=== PATIENT | male | born 1950 | race Caucasian/White ===

== ENCOUNTER 2017-06-22 05:41 | Day surgery (SDC) | payer MEDICARE, OTHER ==
[2017-06-22] MEDS ORDERED: LACTATED RINGERS 1,000 ML IV ONE ×2 (07:04→08:45)
[2017-06-22] MEDS ORDERED: MIDAZOLAM 2 MG/2 ML VIAL IVP ONE (07:36)
[2017-06-22] MEDS ORDERED: fentaNYL 100 MCG/2 ML VIAL IVP ONE (07:36)
[2017-06-22] MEDS ORDERED: PROPOFOL 200 MG/20 ML VIAL IVP ONE (08:15)
[2017-06-22 09:37] VITALS: BP 118/63
== END 2017-06-22 05:42 | disposition home or self-care (01) ==
LOC: SDS 05:41
PROVIDERS: ATTEND Surgery
PROC: 0DBL8ZX Excision of Transverse Colon, Via Natural or Artificial Opening Endoscopic, Diagnostic (ICD-10-PCS; principal; 2017-06-22 07:30)
DX: Z12.11 Encounter for screening for malignant neoplasm of colon (principal); Z80.0 Family history of malignant neoplasm of digestive organs; D12.3 Benign neoplasm of transverse colon; D12.5 Benign neoplasm of sigmoid colon; Z79.82 Long term (current) use of aspirin; E78.5 Hyperlipidemia, unspecified; E11.9 Type 2 diabetes mellitus without complications; Z79.84 Long term (current) use of oral hypoglycemic drugs; Z87.891 Personal history of nicotine dependence
CPT/HCPCS: 45380; J7120

== ENCOUNTER 2018-12-08 05:20 | Day surgery (SDC) | payer MEDICARE, OTHER ==
[2018-12-08] MEDS ORDERED: PROPARACAINE 0.5% OPHTH DROPS 15 ML ONE (06:26)
[2018-12-08] MEDS ORDERED: PHENYLEPHRINE 2.5% OPHTH 2 ML DROPS ONE (06:27)
[2018-12-08] MEDS ORDERED: KETOROLAC 0.45% OPHTH DROPS ONE (06:27)
[2018-12-08] MEDS ORDERED: CYCLOPENTOLATE 1% OPHTH DROPS 2 ML ONE (06:28)
[2018-12-08] MEDS ORDERED: PHENYLEPHRINE 2.5% OPHTH 2 ML DROPS LEFTEYE ONE (06:40)
[2018-12-08] MEDS ORDERED: PROPARACAINE 0.5% OPHTH DROPS 15 ML LEFTEYE ONE ×2 (06:40→07:31)
[2018-12-08] MEDS ORDERED: CYCLOPENTOLATE 1% OPHTH DROPS 2 ML LEFTEYE ONE (06:40)
[2018-12-08] MEDS ORDERED: KETOROLAC 0.45% OPHTH DROPS LEFTEYE ONE (06:40)
[2018-12-08] MEDS ORDERED: LACTATED RINGERS 500 ML IV ONE (06:47)
[2018-12-08] MEDS ORDERED: TRIAMCIN/MOXIFLOX OPHTHALMIC 0.6 ML VIAL IO ONE ×2 (07:01→07:40)
[2018-12-08] MEDS ORDERED: TIMOLOL 0.5% OPHTH DROPS ONE (07:01)
[2018-12-08] MEDS ORDERED: BRIMONIDINE 0.2% OPHTH DROPS 5 ML ONE (07:01)
[2018-12-08] MEDS ORDERED: BSS/LIDOCAINE/EPINEPHRINE 1 ML SYRINGE ONE (07:02)
[2018-12-08] MEDS ORDERED: VANCOMYCIN OPHTHALMI 8MG/0.8ML 8 MG/0.8 ML SYRINGE IO ONE ×2 (07:02→07:40)
--- NOTE | 2018-12-08 07:14 | ANESTHESIA ---
Pre-Anesthesia VS, & Labs - Diagnosis senile combined cataract - Procedure cataract extraction with lens implant, left Vital Signs: Temp Pulse Resp BP Pulse Ox 36.4 C L 76 16 153/76 H 98 12/08/18 06:30 12/08/18 06:30 12/08/18 06:30 12/08/18 06:30 12/08/18 06:30 Height 5 ft 8 in Weight (kg) 84 kg Body Mass Index 27.3 - NPO >8 hours - Lab Results Current Lab Results: Laboratory Tests 12/08/18 06:46: POC Whole Bld Glucose 155 H Home Medications and Allergies Aspirin 81 mg PO DAILY 01/16/15 Atorvastatin Calcium [Lipitor] 80 mg PO DAILY 01/16/15 Metformin HCl 1,000 mg PO BID 01/16/15 Telmisartan [Micardis] 20 mg PO DAILY 01/16/15 Allergies/Adverse Reactions: Allergies Allergy/AdvReac Type Severity Reaction Status Date / Time No Known Drug Allergies Allergy Verified 01/16/15 08:48 Anes History & Medical History - Anesthetic History Anesthesia Complications: reports: No previous complications - Medical History Cardiovascular: reports: Hypertension, High cholesterol Pulmonary: reports: None Gastrointestinal: reports: None Urinary: reports: None Musculoskeletal: reports: Osteoarthritis Endocrine/Autoimmune: reports: Type 2 diabetes Skin: reports: None Smoking Status: Never smoker - Surgical History General: Colonoscopy Exam General: Alert Dental: WNL Mouth Opening: Greater than 4 Fingerbreadths Mallampati classification: II Respiratory: Lungs clear Cardiovascular: Regular rate Plan Anesthesia Type: MAC Consent for Procedure(s) Verified and Reviewed: Yes Code Status: Attempt Resuscitation ASA classification: 2-Mild systemic disease Is this case an emergency?: No
[2018-12-08] MEDS ORDERED: MIDAZOLAM 2 MG/2 ML VIAL IVP ONE (07:30)
[2018-12-08] MEDS ORDERED: TIMOLOL 0.5% OPHTH DROPS OPTH ONE (07:33)
[2018-12-08] MEDS ORDERED: CHONDR SULF/HYALURONATE SYRINGE IO ONE (07:33)
[2018-12-08] MEDS ORDERED: EPINEPHrine 1 MG/ML AMP IVP ONE (07:33)
[2018-12-08] MEDS ORDERED: BRIMONIDINE 0.2% OPHTH DROPS 5 ML OPTH ONE (07:33)
[2018-12-08] MEDS ORDERED: BSS/LIDOCAINE/EPINEPHRINE 1 ML SYRINGE IO ONE (07:40)
[2018-12-08 08:03] VITALS: BP 128/70
--- NOTE | 2018-12-08 08:35 | OPERATIVE REPORT ---
DATE OF SERVICE: 12/08/2018 Physician: Jacques Aceves MD PREOPERATIVE DIAGNOSIS: Visually significant cataract, left eye. This was his first cataract surger y. POSTOPERATIVE DIAGNOSIS: Visually significant cataract, left eye. This was his first with surgery. DESCRIPTION OF PROCEDURE: Phacoemulsification with posterior chamber intraocular lens implant, left eye. SURGEON: Jacques Aceves MD ANESTHESIA: Monitored anesthesia care. COMPLICATIONS: None. OPERATIVE INDICATIONS: This is a 77-year-old man with progressive vision loss in the left eye due to 2+ nuclear sclerotic, 2+ cortical and 1+ posterior subcapsular cataract. Best corrected visual acui ty was 20/40, with glare to 20/500 in the left eye. Indications for surgery were overall decrease in vision, difficulty reading, seeing words on the computer screen, difficulty reading, difficulty seei ng words closed caption or game score on TV, difficulty seeing street signs, difficulty driving in lo w light or at night, difficulty driving at night because of headlights from other vehicles, difficult y with glare or bright lights in any situation, and difficulty tracking a golf ball. He was consente d at length concerning the risks and benefits of cataract surgery, after which he expressed his lobo e to proceed with surgery. OPERATIVE PROCEDURE: The patient was taken into OR #3 and placed under monitored anesthesia care. A surgical timeout was conducted confirming the correct patient, correct procedure, and correct surgic al site. He was given topical anesthesia and then prepped and draped in the usual sterile fashion. The eye was entered at the 6 and 3 o'clock positions. Intracameral Shugarcaine was injected into the anterior chamber, followed by Viscoat. A continuous-tear curvilinear capsulorrhexis was performed. The nucleus was hydrodissected and phacoemulsified. The cortex was evacuated using automated infusi on and aspiration. Provisc was injected into the capsular bag, and a 19.0 diopter intraocular lens w as inserted into the bag. Approximately 0.8 mL mixture of triamcinolone, moxifloxacin and vancomycin was injected subconjunctivally in the superior quadrant for infection and inflammation prophylaxis. I and A was used to evacuate the viscoelastic material. The eye was inflated to physiologic pressur e using balanced salt solution and found to be watertight. The patient was taken from the operating room in good condition and given postoperative instructions. TD: 12/08/2018 07:57
== END 2018-12-08 05:21 | disposition home or self-care (01) ==
LOC: SDS 05:20
PROVIDERS: ATTEND Ophthalmology
PROC: 08RK3JZ Replacement of Left Lens with Synthetic Substitute, Percutaneous Approach (ICD-10-PCS; principal; 2018-12-08 07:30)
DX: H25.812 Combined forms of age-related cataract, left eye (principal); E11.36 Type 2 diabetes mellitus with diabetic cataract; I10 Essential (primary) hypertension; Z87.891 Personal history of nicotine dependence; Z79.82 Long term (current) use of aspirin; Z79.84 Long term (current) use of oral hypoglycemic drugs; Z79.899 Other long term (current) drug therapy
CPT/HCPCS: 66984; A9270; J3490; V2632

== ENCOUNTER 2020-01-27 12:59 | Outpatient (CLI) | payer MEDICARE, OTHER | END 2020-01-27 13:00 | disposition critical access hospital (66) | LOC: EMS 12:59 | PROVIDERS: ATTEND Surgery | DX: R07.89 Other chest pain (principal); R20.0 Anesthesia of skin | CPT/HCPCS: A0425; A0429 ==

== ENCOUNTER 2020-01-27 13:20 | Emergency (ER) | payer MEDICARE, OTHER ==
--- NOTE | 2020-01-27 13:42 | ED Physician Documentation ---
PD HPI CHEST PAIN - Stated complaint Stated Complaint: CP - Chief complaint Chief Complaint: Cardiac - History obtained from History obtained from: Patient, Family, EMS - History of Present Illness Timing - onset: How many hours ago (1), Today Timing - duration: Hours (1) Timing - details: Abrupt onset Pain level max: 6 Pain level now: 0 Quality: Pressure, Aching Location: Left chest Radiation: Left upper extremity Improved by: Nothing. No: Rest, Oxygen, Nitro, ASA, Antacids, Other medication Worsened by: No: Exertion, Inspiration, Eating, Movement, Palpation, Position Associated symptoms: No: Shortness of air, Diaphoresis, Nausea, Vomiting, Feeling faint / dizzy, General Weakness, Palpitations - Additional information Additional information: 69-year-old male with no cardiac history presents to the emergency department stating that he witnessed his daughter and cardiac arrest on the ground today, developed left-sided chest pain that radiated to left arm. States that this lasted approximately 1 hour. He states he had a normal coronary angiogram approximately 5 years ago. No history of cardiac stents, bypasses. He is on a baby aspirin and does have a history of hypertension. Does not smoke, drinks alcohol once a week. Nothing makes it better or worse. He states he feels like it was a stress reaction to seeing his daughter. Currently asymptomatic. Review of Systems Ten Systems: 10 systems reviewed and negative Constitutional: denies: Fever, Chills Nose: denies: Rhinorrhea / runny nose, Congestion GI: denies: Vomiting : denies: Dysuria Skin: denies: Rash Musculoskeletal: denies: Neck pain, Back pain Neurologic: denies: Headache PD PAST MEDICAL HISTORY - Past Medical History Cardiovascular: Hypertension, High cholesterol Respiratory: None Endocrine/Autoimmune: Type 2 diabetes GI: None : None HEENT: None Psych: Claustrophobia Musculoskeletal: Osteoarthritis Derm: None - Past Surgical History Past Surgical History: No General: Colonoscopy - Present Medications Home Medications: Ambulatory Orders Medication Instructions Recorded Confirmed Aspirin 81 mg PO DAILY 01/16/15 12/07/18 Atorvastatin Calcium [Lipitor] 80 mg PO DAILY 01/16/15 12/07/18 Hydrocodone/Acetaminophen 1 - 2 each PO Q6H PRN #15 tablet 01/16/15 06/21/17 [Hydrocodon-Acetaminophen 5-325] Metformin HCl 1,000 mg PO BID 01/16/15 12/07/18 Telmisartan [Micardis] 20 mg PO DAILY 01/16/15 12/07/18 - Allergies Allergies/Adverse Reactions: Allergies Allergy/AdvReac Type Severity Reaction Status Date / Time No Known Drug Allergies Allergy Verified 01/16/15 08:48 - Social History Does the pt smoke?: No Smoking Status: Never smoker Does the pt drink ETOH?: Yes Does the pt have substance abuse?: No - Immunizations Immunizations are current?: Yes PD ED PE NORMAL - Vitals Vital signs reviewed: Yes - General General: Alert and oriented X 3, No acute distress, Well developed/nourished - HEENT HEENT: PERRL, Moist mucous membranes - Neck Neck: Supple, no meningeal sign - Cardiac Cardiac: RRR, Strong equal pulses - Respiratory Respiratory: No respiratory distress, Clear bilaterally - Abdomen Abdomen: Soft, Non tender, Non distended - Derm Derm: Warm and dry - Extremities Extremities: No calf tenderness / cord - Neuro Neuro: Alert and oriented X 3 - Psych Psych: Normal mood, Normal affect Results - Vitals Vitals: Vital Signs - 24 hr 01/27/20 01/27/20 01/27/20 13:33 15:00 16:00 Temperature 37.3 C Heart Rate 83 79 78 Respiratory 16 11 L 12 Rate Blood Pressure 140/93 H 136/97 H 122/70 O2 Saturation 99 100 100 Oxygen O2 Source Room air - EKG (time done) 1333 Rate: Rate (enter#) (80) Rhythm: NSR [place]: Normal Intervals: Normal [place] QRS: Normal Ischemia: Normal ST segments - Labs Labs: Laboratory Tests 01/27/20 01/27/20 01/27/20 14:03 14:03 14:03 WBC 8.4 RBC 4.55 L Hgb 13.6 L Hct 41.8 L MCV 91.9 MCH 29.9 MCHC 32.5 RDW 13.2 Plt Count 208 MPV 9.8 Neut # (Auto) 6.7 H Lymph # (Auto) 0.9 L [place] # (Auto) 0.6 Eos # (Auto) 0.2 Baso # (Auto) 0.0 Absolute Nucleated RBC 0.00 Nucleated RBC % 0.0 Sodium 138 Potassium 3.8 Chloride 102 Carbon Dioxide 24 Anion Gap 12.0 BUN 14 Creatinine 0.8 Estimated GFR (MDRD) 95 Glucose 124 H Calcium 8.9 Total Bilirubin 1.3 H AST 23 ALT 25 Alkaline Phosphatase 41 L Troponin I High Sens 3.2 Total Protein 7.0 Albumin 4.7 Globulin 2.3 Albumin/Globulin Ratio 2.0 Lipase 30 01/27/20 15:38 WBC RBC Hgb Hct MCV MCH MCHC RDW Plt Count MPV Neut # (Auto) Lymph # (Auto) [place] # (Auto) Eos # (Auto) Baso # (Auto) Absolute Nucleated RBC Nucleated RBC % Sodium Potassium Chloride Carbon Dioxide Anion Gap BUN Creatinine Estimated GFR (MDRD) Glucose Calcium Total Bilirubin AST ALT Alkaline Phosphatase Troponin I High Sens 2.9 Total Protein Albumin Globulin Albumin/Globulin Ratio Lipase - Rads (name of study) Chest x-ray Radiology: Prelim report reviewed, EMP read contemporaneously, See rad report (Well contoured retrocardiac opacity is present. This could represent hiatal hernia or diaphragmatic hernia. Evaluation is limited based on current exam. ) PD MEDICAL DECISION MAKING - ED course Complexity details: reviewed results, re-evaluated patient, considered differential (No ST elevation TX, no aortic dissection, no PE, no tension pneumothorax, no aortic aneurysm), d/w patient ED course: 69-year-old male with what appears to be a stress reaction causing his chest pain. No evidence of acute TX. Negative troponin x2. Normal EKG. High- sensitivity troponin was used. Asymptomatic here. Does not wish to be admitted for observation, he would like to go be with his family. Patient counseled regarding signs and symptoms for which I believe and urgent re-evaluation would be necessary. Patient with good understanding of and agreement to plan and is comfortable going home at this time This document was made in part using voice recognition software. While efforts are made to proofread this document, sound alike and grammatical errors may occur. Departure - Departure Disposition: 01 Home, Self Care Clinical Impression: Stress reaction Chest pain Qualifiers: Chest pain type: unspecified Qualified Code(s): R07.9 - Chest pain, unspecified Condition: Good Instructions: ED Chest Pain Atypical Unkn Cause Follow-Up: Shelbi Martinez MD [Primary Care Provider] - Within 3 Days Comments: Continue your current medications at home. Follow-up with your doctor early next week, on Wednesday or Wednesday. Return if you worsen. Discharge Date/Time: 01/27/20 16:15
--- NOTE | 2020-01-27 14:09 | XRAY Report ---
PROCEDURE: Chest 1 View X-Ray INDICATIONS: Chest Pain TECHNIQUE: One view of the chest was acquired. COMPARISON: None FINDINGS: Surgical changes and devices: None. Lungs and pleura: No pleural effusions or pneumothorax. Lungs are clear. Mediastinum: Well contoured retrocardiac opacity is present.. Heart size is normal. Bones and chest wall: No suspicious bony lesions. Overlying soft tissues appear unremarkable. IMPRESSION: Well contoured retrocardiac opacity is present. This could represent hiatal hernia or diaphragmatic h ernia. Evaluation is limited based on current exam. Reviewed by: Irena Rojas MD on 01/27/2020 2:07 PM PDT Approved by: Irena Rojas MD on 01/27/2020 2:07 PM PDT Station ID: [id number]
[2020-01-27 14:22] LABS: BASOPHILS % (AUTO) 0.5 %; EOSINOPHILS # (AUTO) 0.2 10^3/uL (0.0-0.7); EOSINOPHILS % (AUTO) 1.8 %; HGB - HEMOGLOBIN 13.6 g/dL (14.0-18.0); LYMPHOCYTES # (AUTO) 0.9 10^3/uL (1.5-3.5); LYMPHOCYTES % (AUTO) 10.5 %; MEAN CORPUSCULAR HEMOGLOBIN 29.9 pg (27.0-31.0); MEAN CORPUSCULAR HGB CONC 32.5 g/dL (32.0-36.0); MEAN CORPUSCULAR VOLUME 91.9 fL (80.0-94.0); MEAN PLATELET VOLUME 9.8 fL (7.4-11.4); MONOCYTES # (AUTO) 0.6 10^3/uL (0.0-1.0); MONOCYTES % (AUTO) 7.1 %; NEUTROPHILS # (AUTO) 6.7 10^3/uL (1.5-6.6); NEUTROPHILS % (AUTO) 79.7 %; PLT - PLATELET COUNT 208 10^3/uL (130-450); RED BLOOD COUNT 4.55 10^6/uL (4.70-6.10); RED CELL DISTRIBUTION WIDTH 13.2 % (12.0-15.0); WHITE BLOOD COUNT 8.4 x10^3/uL (4.8-10.8)
[2020-01-27 14:35] LABS: ALBUMIN 4.7 g/dL (3.2-5.5); BILIRUBIN,TOTAL 1.3 mg/dL (0.2-1.0); CALCIUM 8.9 mg/dL (8.5-10.3); CREATININE 0.8 mg/dL (0.6-1.2)
[2020-01-27 16:06] VITALS: BP 122/70
== END 2020-01-27 16:15 | disposition home or self-care (01) ==
LOC: ED 13:20
DX: F43.9 Reaction to severe stress, unspecified (principal); R07.9 Chest pain, unspecified; I10 Essential (primary) hypertension; E11.9 Type 2 diabetes mellitus without complications; Z79.84 Long term (current) use of oral hypoglycemic drugs
CPT/HCPCS: 36415; 71045; 80053; 83690; 84484; 85025; 93005; 99284; 99285

== ENCOUNTER 2021-11-25 14:28 | Emergency (ER) | payer MEDICARE, OTHER ==
--- NOTE | 2021-11-25 15:24 | XRAY Report ---
PROCEDURE: Chest 2 View X-Ray INDICATIONS: cough TECHNIQUE: 2 view(s) of the chest. COMPARISON: January 27, 2020 FINDINGS: SUPPORT DEVICES: None. LUNGS/PLEURA: No focal consolidation, pleural effusion or space-occupying pneumothorax. MEDIASTINUM: The cardiomediastinal silhouette is within normal limits. BONES/SOFT TISSUES: No acute abnormality. Eventration of the medial left diaphragm, unchanged. IMPRESSION: 1.No acute cardiopulmonary abnormality. Reviewed by: Milan Conley MD on 11/25/2021 3:22 PM PDT Approved by: Milan Conley MD on 11/25/2021 3:22 PM PDT Station ID: [id number]
--- NOTE | 2021-11-25 16:03 | ED Physician Documentation ---
History of Present Illness - Stated complaint Stated Complaint: DIZZY, HEADACHE, SORE THROAT, CHILLS - Chief complaint Chief Complaint: General - History obtained from History obtained from: Patient - History of Present Illness Timing: Yesterday Pain level max: 5 Pain level now: 2 - Additonal information Additional information: Patient is a 71-year-old male who started getting sick yesterday. He states he had a headache, nasal congestion, sore throat, body aches, subjective fevers and cough. Has had his COVID vaccinations. Nothing makes it better or worse. No recent travel. No abdominal pain. No nausea or vomiting. No chest pain. No dyspnea Review of Systems Constitutional: reports: Fever (Subjective), Chills Nose: reports: Rhinorrhea / runny nose, Congestion, Sinus pressure / pain Throat: reports: Sore throat Cardiac: denies: Chest pain / pressure Respiratory: reports: Cough. denies: Dyspnea, Hemoptysis, Wheezing GI: denies: Abdominal Pain, Nausea, Vomiting, Diarrhea Skin: denies: Rash Musculoskeletal: denies: Neck pain, Back pain Neurologic: denies: Headache PD PAST MEDICAL HISTORY - Past Medical History Cardiovascular: Hypertension, High cholesterol Respiratory: None Endocrine/Autoimmune: Type 2 diabetes GI: None : None HEENT: None Psych: Claustrophobia Musculoskeletal: Osteoarthritis Derm: None - Past Surgical History Past Surgical History: No General: Colonoscopy - Present Medications Home Medications: Ambulatory Orders Medication Instructions Recorded Confirmed Aspirin 81 mg PO DAILY 01/16/15 11/25/21 Atorvastatin Calcium [Lipitor] 80 mg PO DAILY 01/16/15 11/25/21 Metformin HCl 1,000 mg PO BID 01/16/15 11/25/21 Telmisartan [Micardis] 20 mg PO DAILY 01/16/15 11/25/21 Benzonatate [Tessalon] 200 mg PO TID PRN #30 cap 11/25/21 Cetirizine HCl/Pseudoephedrine 1 each PO BID PRN #30 ea 11/25/21 [Zyrtec-D Tablet] Fluticasone [Flonase] 1 sprays LOC BID PRN #1 bottle 11/25/21 - Allergies Allergies/Adverse Reactions: Allergies Allergy/AdvReac Type Severity Reaction Status Date / Time No Known Drug Allergies Allergy Verified 11/25/21 14:35 - Social History Does the pt smoke?: No Smoking Status: Never smoker Does the pt drink ETOH?: Yes Does the pt have substance abuse?: No - Immunizations Immunizations are current?: Yes PD ED PE NORMAL - Vitals Vital signs reviewed: Yes - General General: Alert and oriented X 3, No acute distress - HEENT HEENT: PERRL, Ears normal, Moist mucous membranes, Pharynx benign - Neck Neck: Supple, no meningeal sign - Cardiac Cardiac: RRR, Strong equal pulses - Respiratory Respiratory: No respiratory distress, Clear bilaterally - Abdomen Abdomen: Soft, Non tender, Non distended - Derm Derm: Warm and dry, No rash - Extremities Extremities: No edema - Neuro Neuro: Alert and oriented X 3 - Psych Psych: Normal mood, Normal affect Results - Vitals Vitals: Vital Signs - 24 hr 11/25/21 14:30 Temperature 36.3 C L Heart Rate 95 Respiratory 18 Rate Blood Pressure 126/54 L O2 Saturation 98 Oxygen O2 Source Room air - Rads (name of study) cxr Radiology: Final report received, EMP read contemporaneously, See rad report (NAD) PD MEDICAL DECISION MAKING - ED course Complexity details: reviewed results, re-evaluated patient, considered differential, d/w patient ED course: Patient with what appears to be a viral upper respiratory infection. Patient is well-appearing, nontoxic. Afebrile. No hypoxia or respiratory distress. Chest x-ray does not show any acute abnormalities. We will continue supportive care and have him follow-up with his doctor for further care. Patient will return if he worsens. COVID testing performed. Patient counseled regarding signs and symptoms for which I believe and urgent re-evaluation would be necessary. Patient with good understanding of and agreement to plan and is comfortable going home at this time This document was made in part using voice recognition software. While efforts are made to proofread this document, sound alike and grammatical errors may occur. Departure - Departure Disposition: 01 Home, Self Care Clinical Impression: Viral URI Condition: Good Instructions: ED Viral Syndrome Follow-Up: your,doctor in 1 week [Other] Prescriptions: Fluticasone [Flonase] 1 sprays LOC BID PRN #1 bottle PRN Reason: Nasal Congestion Benzonatate [Tessalon] 200 mg PO TID PRN #30 cap PRN Reason: Cough Cetirizine HCl/Pseudoephedrine [Zyrtec-D Tablet] 1 each PO BID PRN #30 ea PRN Reason: nasal congestion Comments: Your prescriptions were sent to [facility] in [place]. This likely represents a viral upper respiratory infection. A COVID test was sent. Your chest x-ray does not show any evidence of pneumonia at this time. Drink plenty of fluids and rest. Return if you worsen
[2021-11-25 16:15] VITALS: BP 135/75
== END 2021-11-25 16:15 | disposition home or self-care (01) ==
LOC: ED 14:28
DX: U07.1 COVID-19 (principal)
CPT/HCPCS: 71046; 99282; 99284; U0004

== ENCOUNTER 2023-03-15 14:47 | Emergency (ER) | payer MEDICARE, OTHER ==
[2023-03-15 15:30] VITALS: O2SAT 99
[2023-03-15 16:06] LABS: BASOPHILS % (AUTO) 0.6 %; EOSINOPHILS # (AUTO) 0.3 10^3/uL (0.0-0.7); HCT - HEMATOCRIT 42.5 % (42.0-52.0); HGB - HEMOGLOBIN 13.8 g/dL (14.0-18.0); LYMPHOCYTES # (AUTO) 1.3 10^3/uL (1.5-3.5); LYMPHOCYTES % (AUTO) 19.2 %; MEAN CORPUSCULAR HEMOGLOBIN 29.9 pg (27.0-31.0); MEAN CORPUSCULAR HGB CONC 32.5 g/dL (32.0-36.0); MEAN PLATELET VOLUME 9.2 fL (7.4-11.4); MONOCYTES # (AUTO) 0.4 10^3/uL (0.0-1.0); MONOCYTES % (AUTO) 6.2 %; NEUTROPHILS # (AUTO) 4.5 10^3/uL (1.5-6.6); NEUTROPHILS % (AUTO) 68.7 %; PLT - PLATELET COUNT 231 10^3/uL (130-450); RED BLOOD COUNT 4.62 10^6/uL (4.70-6.10); RED CELL DISTRIBUTION WIDTH 13.4 % (12.0-15.0); WHITE BLOOD COUNT 6.6 x10^3/uL (4.8-10.8)
[2023-03-15 16:19] LABS: ALBUMIN 4.4 g/dL (3.2-5.5); ALBUMIN/GLOBULIN RATIO 1.9 (1.0-2.2); BILIRUBIN,TOTAL 0.4 mg/dL (0.2-1.0); CALCIUM 9.3 mg/dL (8.5-10.3); CREATININE 0.8 mg/dL (0.6-1.3); TOTAL PROTEIN 6.7 g/dL (6.4-8.9)
--- NOTE | 2023-03-15 17:47 | ED Physician Documentation ---
History of Present Illness - Stated complaint Stated Complaint: NECK PX, DIZZINESS - Chief complaint Chief Complaint: General - History obtained from History obtained from: Patient - Additonal information Additional information: 72-year-old gentleman with history of of bad neck and diabetes was looking up in the [employer] lot about a week and a half ago and felt a popping crunch in the right side of his neck. Progressively that night developed a headache and he does not have a history of frequent headaches. Subsequently over the last several days, the son thinks about 4 days, he has developed dragging of the left foot and disequilibrium such that he has needed help walking. He declines pain medication on initial evaluation. PD PAST MEDICAL HISTORY - Past Medical History Cardiovascular: Hypertension, High cholesterol Respiratory: None Endocrine/Autoimmune: Type 2 diabetes GI: None : None HEENT: None Psych: Claustrophobia Musculoskeletal: Osteoarthritis Derm: None - Past Surgical History Past Surgical History: No General: Colonoscopy - Present Medications Home Medications: Ambulatory Orders Medication Instructions Recorded Confirmed Aspirin 81 mg PO DAILY 01/16/15 11/25/21 Atorvastatin Calcium [Lipitor] 80 mg PO DAILY 01/16/15 11/25/21 Metformin HCl 1,000 mg PO BID 01/16/15 11/25/21 Telmisartan [Micardis] 20 mg PO DAILY 01/16/15 11/25/21 Benzonatate [Tessalon] 200 mg PO TID PRN #30 cap 11/25/21 Cetirizine HCl/Pseudoephedrine 1 each PO BID PRN #30 ea 11/25/21 [Zyrtec-D Tablet] Fluticasone [Flonase] 1 sprays LOC BID PRN #1 bottle 11/25/21 - Allergies Allergies/Adverse Reactions: Allergies Allergy/AdvReac Type Severity Reaction Status Date / Time No Known Drug Allergies Allergy Verified 11/25/21 14:35 - Social History Does the pt smoke?: No Smoking Status: Never smoker Does the pt drink ETOH?: Yes Does the pt have substance abuse?: No - Immunizations Immunizations are current?: Yes PD ED PE NORMAL - Vitals Vital signs reviewed: Yes - General General: Alert and oriented X 3, No acute distress - HEENT HEENT: PERRL, EOMI - Neck Neck: Supple, no meningeal sign, No bony TTP - Cardiac Cardiac: RRR, No murmur - Respiratory Respiratory: No respiratory distress, Clear bilaterally - Abdomen Abdomen: Normal bowel sounds, Soft, Non tender - Back Back: No CVA TTP, No spinal TTP - Derm Derm: Normal color, Warm and dry - Neuro Neuro: Alert and oriented X 3, stove cleaner 2-12 intact, Other (He may have a mild issues with [id number] testing on the left, but it is fairly subtle. I do not see any cranial neuropathy. He has significant difficulty walking and has to be assisted by the son and is weak and uncoordinated in the left leg.) Eye Opening: Spontaneous Motor: Obeys Commands Verbal: Oriented GCS Score: 15 - Psych Psych: Normal mood, Normal affect Results - Vitals Vitals: Vital Signs - 24 hr 03/15/23 03/15/23 03/15/23 15:06 17:17 19:16 Temperature 36.7 C Heart Rate 97 94 91 Respiratory 20 18 18 Rate Blood Pressure 151/85 H 150/85 H 149/84 H O2 Saturation 99 99 99 Oxygen O2 Source Room air - EKG (time done) 1617 EKG releavant findings:: EKG personally interpreted by author of this note. Relevant findings are: Rate: Rate (enter#) (74) Rhythm: NSR [place]: Normal QRS: Low voltage Ischemia: Normal ST segments - Labs Labs: Laboratory Tests 03/15/23 03/15/23 03/15/23 07:23 15:15 15:57 WBC 6.6 RBC 4.62 L Hgb 13.8 L Hct 42.5 MCV 92.0 MCH 29.9 MCHC 32.5 RDW 13.4 Plt Count 231 MPV 9.2 Neut # (Auto) 4.5 Lymph # (Auto) 1.3 L [place] # (Auto) 0.4 Eos # (Auto) 0.3 Baso # (Auto) 0.0 Absolute Nucleated RBC 0.00 Nucleated RBC % 0.0 PT 10.5 INR 1.0 Sodium Potassium Chloride Carbon Dioxide Anion Gap BUN Creatinine Estimated GFR (MDRD) Glucose POC Whole Bld Glucose 226 H Calcium Total Bilirubin AST ALT Alkaline Phosphatase Total Protein Albumin Globulin Albumin/Globulin Ratio 03/15/23 15:57 WBC RBC Hgb Hct MCV MCH MCHC RDW Plt Count MPV Neut # (Auto) Lymph # (Auto) [place] # (Auto) Eos # (Auto) Baso # (Auto) Absolute Nucleated RBC Nucleated RBC % PT INR Sodium 136 Potassium 4.0 Chloride 100 L Carbon Dioxide 31 Anion Gap 5.0 L BUN 11 Creatinine 0.8 Estimated GFR (MDRD) 94 Glucose 262 H POC Whole Bld Glucose Calcium 9.3 Total Bilirubin 0.4 AST 19 ALT 18 Alkaline Phosphatase 46 Total Protein 6.7 Albumin 4.4 Globulin 2.3 Albumin/Globulin Ratio 1.9 PD Medical Decision Making - ED course ED course: 72-year-old gentleman presents with a week and a half of acute neck pain and then headache and neurologic symptoms affecting the left side. Initially I was most concerned for vertebral dissection and CT angiography was done. CT angiogram demonstrates a large right-sided subdural hematoma with midline shift and early subfalcine herniation. He is awake alert and talking, he is dragging his raff left leg. There is concern also on the CTA for poor flow in the right A1, but that does not really fit the rest of the imaging findings. [facility] called for transfer. Excepted by Dr. Faiza Dunn at 7:25 PM to [facility] ED. - Critical Care Time(min): 35 Time Includes: Direct patient care, Review records, Reassess patient, Document care, Coordinate care, Medical consult, Family consult for tx dec Data interpretation: Labs, Pulse ox Procedures excluded from critical care time: EKG Departure - Departure Disposition: 02 Transfer Acute Care Hosp Clinical Impression: Subdural hematoma Condition: Critical Forms: PCP List
--- NOTE | 2023-03-15 19:17 | CT Report ---
PROCEDURE: CT Angio Head/Neck INDICATIONS: CVA sx TECHNIQUE: After the administration of intravenous contrast, 1 mm thick sections acquired from the aortic arch t hrough the [place] [facility] [place]. 3-dimensional mwtutjk-asabepcrx-rfvimoosvm (MIP) and/or volume renderin g reformats were acquired of the central intracranial vasculature and neck separately. For radiation dose reduction, the following was used: automated exposure control, adjustment of mA and/or kV acco rding to patient size. CONTRAST: IV contrast was given. COMPARISON: None. FINDINGS: Image quality: Diagnostic. HEAD CT: CSF Spaces: Basal cisterns are patent. Ventricles are normal in size and shape. Brain: There is a prominent right subdural fluid collection seen, with the maximum thickness of 2.5 cm, which demonstrates an internal density of 66 Hounsfield units. There is 12 mm associated midline shift. There is early subfalcine herniation. No abnormal intracranial enhancement. Nagel-white interface appears normal. Skull and face: Calvarium and visualized facial bones appear intact, without suspicious lesions. Sinuses: Scattered areas of moderate mucosal thickening can be seen within the paranasal sinuses, whi ch are overall worst within the left maxillary sinus. HEAD CT ANGIOGRAPHY: Anterior circulation: Intracranial internal carotid arteries are normal in size and flow. Note is m tray of poor flow within the right A1 segment. The flow within the paired anterior cerebral arteries i s otherwise normal and symmetric. The flow within the middle cerebral arteries is normal and symmetr ic. The anterior communicating artery is seen. No aneurysms are seen. Posterior circulation: Visualized portions of the vertebral arteries demonstrate normal caliber, and join to form a normal appearing basilar artery. Flow within the posterior cerebral arteries is norm al and symmetric. No aneurysms are seen. NECK CT ANGIOGRAPHY: Carotid system: The great vessels demonstrate a conventional anatomy as they arise from the aortic a [facility]. The origins of the common carotid arteries appear patent. The common carotid arteries demonstr ate normal caliber and courses. The bifurcation regions are both widely patent. The internal caroti d arteries demonstrate normal calibers and courses. Posterior circulation: The origins of the vertebral arteries both appear widely patent. The more hall perior extracranial portions of both vertebral arteries also demonstrate normal courses and calibers. They join to form a normal appearing basilar artery. Soft tissues: Visualized neck soft tissues demonstrate no suspicious abnormalities. Bones: No suspicious bony lesions. Visualized cervical spine appears normally aligned. At least mo derate cervical spine degenerative change can be seen. IMPRESSION: There is a large (2.5 cm thickness) right-sided subdural hematoma seen, which is believed to be acute . There is associated midline shift of 12 mm. There is associated early mild subfalcine herniation. The basal cisterns remain patent. There is poor flow within the right A1 segment. This is unclear whether this is related to the mass e ffect or within this is a congenital variant. No hemodynamically significant stenosis can be seen within the arteries of the neck. Note: Critical finding discussed by telephone with Dr. Covington at 6:14 PM [place] time on 03/15/2023. The estimate of stenosis included in the report of the imaging study was calculated using the NASCET method Reviewed by: Irving Yi MD on 03/15/2023 6:15 PM [facility] Approved by: Irving Yi MD on 03/15/2023 6:15 PM [facility] Station ID: [id number]
[2023-03-15 19:24] VITALS: BP 149/84
[2023-03-15 19:48] LABS: PT - PROTHROMBIN TIME 10.5 secs (9.9-12.6)
[2023-03-15] MEDS ORDERED: LORazepam 2 MG/ML VIAL IVP STA (20:01)
[2023-03-16] MEDS ORDERED: iohexoL-300 100 ML VIAL IVP ONE (01:15)
== END 2023-03-15 20:32 | disposition short-term general hospital (02) ==
LOC: ED 14:47
DX: S06.5XAA Traumatic subdural hemorrhage with loss of consciousness status unknown, initial encounter (principal); X58.XXXA Exposure to other specified factors, initial encounter; Y93.89 Activity, other specified; Y92.481 Parking lot as the place of occurrence of the external cause; Z20.822 Contact with and (suspected) exposure to COVID-19
CPT/HCPCS: 36415; 70496; 70498; 80053; 85025; 85610; 87635; 93005; 96374; 99291; J2060; Q9967

== ENCOUNTER 2024-04-05 09:56 | Outpatient (CLI) | payer MEDICARE, OTHER ==
[2024-04-05 11:55] LABS: BASOPHILS % (AUTO) 0.7 %; EOSINOPHILS # (AUTO) 0.4 10^3/uL (0.0-0.7); EOSINOPHILS % (AUTO) 5.9 %; HCT - HEMATOCRIT 44.8 % (42.0-52.0); HGB - HEMOGLOBIN 14.2 g/dL (14.0-18.0); LYMPHOCYTES # (AUTO) 1.5 10^3/uL (1.5-3.5); LYMPHOCYTES % (AUTO) 25.8 %; MEAN CORPUSCULAR HGB CONC 31.7 g/dL (32.0-36.0); MEAN CORPUSCULAR VOLUME 91.6 fL (80.0-94.0); MEAN PLATELET VOLUME 9.9 fL (7.4-11.4); MONOCYTES # (AUTO) 0.5 10^3/uL (0.0-1.0); NEUTROPHILS # (AUTO) 3.5 10^3/uL (1.5-6.6); NEUTROPHILS % (AUTO) 59.3 %; PLT - PLATELET COUNT 250 10^3/uL (130-450); RED BLOOD COUNT 4.89 10^6/uL (4.70-6.10); RED CELL DISTRIBUTION WIDTH 13.3 % (12.0-15.0); WHITE BLOOD COUNT 5.9 x10^3/uL (4.8-10.8)
[2024-04-05 12:02] LABS: ESTIMATED AVERAGE GLUCOSE 192 mg/dL (70-100); HEMOGLOBIN A1c% 8.3 % (4.27-6.07)
[2024-04-05 12:08] LABS: ALBUMIN 4.4 g/dL (3.2-5.5); ALBUMIN/GLOBULIN RATIO 1.9 (1.0-2.2); ALKALINE PHOSPHATASE 54 IU/L (42-121); ALT ALANINE AMINOTRANSFERASE 20 IU/L (10-60); AST ASPARTATE AMINOTRANSFERASE 19 IU/L (10-42); BILIRUBIN,TOTAL 0.6 mg/dL (0.2-1.0); BUN - BLOOD UREA NITROGEN 11 mg/dL (6-20); CALCIUM 9.2 mg/dL (8.5-10.3); CARBON DIOXIDE - CO2 33 mmol/L (21-32); CHLORIDE 102 mmol/L (101-111); CHOL/HDL RATIO 3.2 (<5.0); CHOLESTEROL 183 mg/dL; CREATININE 0.7 mg/dL (0.6-1.3); GFR - MDRD 110 (>89); GLUCOSE 195 mg/dL (74-104); HDL CHOLESTEROL 57 mg/dL; LDL CHOLESTEROL,CALCULATED 106 mg/dL; LDL/HDL RATIO 1.9 (<3.6); POTASSIUM 4.4 mmol/L (3.5-4.5); SODIUM 138 mmol/L (135-145); TOTAL PROTEIN 6.7 g/dL (6.4-8.9); TRIGLYCERIDES 101 mg/dL; VLDL CHOLESTEROL 20 mg/dL
[2024-04-05 12:21] LABS: THYROID STIMULATING HORMONE 0.95 uIU/mL (0.34-5.60)
== END 2024-04-05 09:57 | disposition home or self-care (01) ==
LOC: LAB.N 09:56
PROVIDERS: ATTEND Physician Assistant
DX: E11.9 Type 2 diabetes mellitus without complications (principal); I10 Essential (primary) hypertension; Z12.5 Encounter for screening for malignant neoplasm of prostate
CPT/HCPCS: 36415; 80053; 80061; 83036; 84443; 85025; G0103; 83721; 84153